=== PATIENT | female | born 1950 | race Caucasian/White ===

== ENCOUNTER 2019-01-07 12:43 | Outpatient (CLI) ==
[2013-03-16 15:19] VITALS: BP 160/77; TEMP 98.7; BMI 48.4
[2019-01-10 17:48] VITALS: BMI 47.9
== END 2019-01-07 13:03 | disposition short-term general hospital (02) ==
LOC: AMBL 12:43
PROVIDERS: ATTEND Emergency Medicine
DX: M79.605 Pain in left leg (principal); S00.12XA Contusion of left eyelid and periocular area, initial encounter; R42 Dizziness and giddiness; W19.XXXA Unspecified fall, initial encounter; S80.12XA Contusion of left lower leg, initial encounter; S42.302A Unspecified fracture of shaft of humerus, left arm, initial encounter for closed fracture

== ENCOUNTER 2019-01-14 18:10 | Outpatient (CLI) ==
[2013-03-16 15:19] VITALS: TEMP 98.7
[2019-01-10 17:48] VITALS: BMI 47.9
== END 2019-01-14 18:33 | disposition short-term general hospital (02) ==
LOC: AMBL 18:10
PROVIDERS: ATTEND Emergency Medicine
DX: L08.9 Local infection of the skin and subcutaneous tissue, unspecified (principal); M79.89 Other specified soft tissue disorders; N19 Unspecified kidney failure; K76.9 Liver disease, unspecified; R11.2 Nausea with vomiting, unspecified; S80.12XD Contusion of left lower leg, subsequent encounter; S42.302D Unspecified fracture of shaft of humerus, left arm, subsequent encounter for fracture with routine healing; W19.XXXD Unspecified fall, subsequent encounter

== ENCOUNTER 2019-01-28 15:58 | Outpatient (CLI) ==
[2013-03-16 15:19] VITALS: TEMP 98.7
[2019-01-10 17:48] VITALS: BMI 47.9
== END 2019-01-28 16:21 | disposition short-term general hospital (02) ==
LOC: AMBL 15:58
PROVIDERS: ATTEND Emergency Medicine
DX: R60.0 Localized edema (principal)